=== PATIENT | male | born 1955 | race Caucasian/White ===

== ENCOUNTER 2017-08-22 11:18 | Emergency (ER) | payer MEDICARE, MEDICAID ==
[~2017-08-22] VITALS: Ht 177.8 cm; Wt 93.7 kg
[~2017-08-22 11:18] MED LIST: CARV25TA PO; CLON-529 PO
[2017-08-22 11:36] LABS: BASOPHILS % (AUTO) 0.5 % (0-1); EOSINOPHILS # (AUTO) 0.4 X10'3 (0-0.9); EOSINOPHILS % (AUTO) 5.6 % (0-6); HEMATOCRIT 42.3 % (42.0-52.0); HEMOGLOBIN 14.1 g/dl (14.0-17.9); LYMPHOCYTES # (AUTO) 1.2 X10'3 (1.1-4.8); LYMPHOCYTES % (AUTO) 16.1 % (21-51); MEAN CORPUSCULAR HEMOGLOBIN 27.8 PG (27.0-31.0); MEAN CORPUSCULAR HGB CONC 33.4 % (33.0-36.5); MEAN CORPUSCULAR VOLUME 83.2 FL (78-98); MEAN PLATELET VOLUME 6.9 FL (7.4-10.4); MONOCYTES # (AUTO) 0.5 X10'3 (0-0.9); MONOCYTES % (AUTO) 6.1 % (2-12); NEUTROPHILS # (AUTO) 5.3 X10'3 (1.8-7.7); NEUTROPHILS % (AUTO) 71.7 % (42-75); PLATELET COUNT 204 X10'3 (140-440); RED BLOOD COUNT 5.09 X10'6 (4.70-6.10); RED CELL DISTRIBUTION WIDTH 13.7 % (11.5-14.5); WHITE BLOOD COUNT 7.4 X10'3 (4.5-11.0)
[2017-08-22] MEDS ORDERED: normal saline 1000ML IV soln IV ONE (11:40)
[2017-08-22 11:45] LABS: INR 1.1 INR; PROTHROMBIN TIME 11.2 SECONDS (9.0-12.0)
[2017-08-22 11:50] LABS: ALANINE AMINOTRANSFERASE 27 U/L (12-78); ALBUMIN 3.4 G/DL (3.4-5.0); ALBUMIN/GLOBULIN RATIO 0.9 (1.1-1.5); ALKALINE PHOSPHATASE 124 IU/L (46-116); ANION GAP 8 (8-16); ASPARTATE AMINO TRANSFERASE 16 U/L (10-37); BILIRUBIN,TOTAL 0.4 MG/DL (0.1-1.0); BLOOD UREA NITROGEN 20 MG/DL (7-18); BUN/CREATININE RATIO 15.6 (5.4-32.0); CALCIUM 8.9 MG/DL (8.5-10.1); CHLORIDE 104 MMOL/L (99-107); CREATININE 1.28 MG/DL (0.60-1.10); GLUCOSE 197 MG/DL (70-104); POTASSIUM 4.2 MMOL/L (3.5-5.1); SODIUM 138 MMOL/L (135-145); TOTAL CARBON DIOXIDE 26.1 MMOL/L (24-32); eGFR 57 ML/MIN
[2017-08-22] MEDS ORDERED: ciprofloxacin lact 400MG/200ML 200 ML IV STA (12:27)
[2017-08-22] MEDS ORDERED: CIPR-259 PO (12:33)
[2017-08-22] MEDS ORDERED: ONDA4TAB9 SL (12:33)
[2017-08-22] MEDS ORDERED: morphine 4 MG/ML inj SYRINge IV ONE (13:20)
[2017-08-22 13:32] LABS: CLARITY,URINE Clear (Clear); COLOR,URINE Yellow (Yellow); GLUCOSE, URINE Negative (Neg); KETONES,URINE Negative (Neg); LEUKOCYTE ESTERASE ,URINE Negative (Neg); NITRITES, URINE Negative (Neg); OCCULT BLOOD,URINE Negative (Neg); PROTEIN,URINE Negative (Neg); UA COLLECTION TYPE URINAL
[2017-08-22] MEDS ORDERED: cloNIDine 0.1 mg tablet PO ONE (14:55)
[2017-08-22 15:29] VITALS: BP 222/121
== END 2017-08-22 15:37 | disposition home or self-care (01) ==
LOC: ER 11:19
DX: K57.92 Diverticulitis of intestine, part unspecified, without perforation or abscess without bleeding (principal); I10 Essential (primary) hypertension; Z79.899 Other long term (current) drug therapy
CPT/HCPCS: 36415; 74150; 80053; 81003; 83605; 84145; 85025; 85610; 87040; 96365; 96366; 96375; 99285; J0744; J2270; J7030

== ENCOUNTER 2017-08-26 09:20 | Emergency (ER) | payer MEDICARE, MEDICAID ==
[~2017-08-26] VITALS: Ht 604 cm; Wt 93.0 kg
[~2017-08-26 09:20] MED LIST changes: +CIPR-259 PO; +ONDA4TAB9 SL
[2017-08-26 09:36] VITALS: BP 143/90
[2017-08-26 10:45] LABS: BASOPHILS # (AUTO) 0.1 X10'3 (0-0.2); BASOPHILS % (AUTO) 1.1 % (0-1); EOSINOPHILS # (AUTO) 0.4 X10'3 (0-0.9); EOSINOPHILS % (AUTO) 6.5 % (0-6); HEMOGLOBIN 14.4 g/dl (14.0-17.9); LYMPHOCYTES # (AUTO) 1.2 X10'3 (1.1-4.8); LYMPHOCYTES % (AUTO) 18.6 % (21-51); MEAN CORPUSCULAR HGB CONC 33.6 % (33.0-36.5); MEAN CORPUSCULAR VOLUME 83.5 FL (78-98); MONOCYTES # (AUTO) 0.4 X10'3 (0-0.9); MONOCYTES % (AUTO) 6.8 % (2-12); NEUTROPHILS # (AUTO) 4.3 X10'3 (1.8-7.7); PLATELET COUNT 209 X10'3 (140-440); RED BLOOD COUNT 5.15 X10'6 (4.70-6.10); RED CELL DISTRIBUTION WIDTH 13.5 % (11.5-14.5); WHITE BLOOD COUNT 6.5 X10'3 (4.5-11.0)
== END 2017-08-26 11:12 | disposition home or self-care (01) ==
LOC: ER 09:20
DX: R10.32 Left lower quadrant pain (principal); I10 Essential (primary) hypertension; Z79.899 Other long term (current) drug therapy
CPT/HCPCS: 36415; 85025; 99283

== ENCOUNTER 2017-10-14 07:42 | Emergency (ER) | payer MEDICARE, MEDICAID ==
[~2017-10-14] VITALS: Ht 604 cm; Wt 90.3 kg
[~2017-10-14 07:42] MED LIST changes: -CIPR-259 PO; -ONDA4TAB9 SL
[2017-10-14] MEDS ORDERED: pantoprazole 40 MG vial IV ONE (08:35)
[2017-10-14] MEDS ORDERED: normal saline 1000ML IV soln IVB ONE (08:35)
[2017-10-14 09:16] LABS: BASOPHILS # (AUTO) 0.1 X10'3 (0-0.2); BASOPHILS % (AUTO) 0.9 % (0-1); EOSINOPHILS # (AUTO) 0.3 X10'3 (0-0.9); EOSINOPHILS % (AUTO) 5.2 % (0-6); HEMATOCRIT 43.5 % (42.0-52.0); HEMOGLOBIN 14.2 g/dl (14.0-17.9); LYMPHOCYTES % (AUTO) 17.6 % (21-51); MEAN CORPUSCULAR HEMOGLOBIN 27.2 PG (27.0-31.0); MEAN CORPUSCULAR HGB CONC 32.6 % (33.0-36.5); MEAN CORPUSCULAR VOLUME 83.3 FL (78-98); MEAN PLATELET VOLUME 7.7 FL (7.4-10.4); MONOCYTES # (AUTO) 0.4 X10'3 (0-0.9); MONOCYTES % (AUTO) 6.4 % (2-12); NEUTROPHILS # (AUTO) 3.9 X10'3 (1.8-7.7); NEUTROPHILS % (AUTO) 69.9 % (42-75); PLATELET COUNT 196 X10'3 (140-440); RED BLOOD COUNT 5.22 X10'6 (4.70-6.10); RED CELL DISTRIBUTION WIDTH 14.1 % (11.5-14.5); WHITE BLOOD COUNT 5.7 X10'3 (4.5-11.0)
[2017-10-14 09:25] LABS: PROTHROMBIN TIME 10.7 SECONDS (9.0-12.0)
[2017-10-14 10:04] LABS: ALANINE AMINOTRANSFERASE 16 U/L (12-78); ALBUMIN 3.4 G/DL (3.4-5.0); ALBUMIN/GLOBULIN RATIO 1.1 (1.1-1.5); ALKALINE PHOSPHATASE 95 IU/L (46-116); ANION GAP 8 (8-16); ASPARTATE AMINO TRANSFERASE 7 U/L (10-37); BILIRUBIN,TOTAL 0.7 MG/DL (0.1-1.0); BLOOD UREA NITROGEN 18 MG/DL (7-18); BUN/CREATININE RATIO 16.1 (5.4-32.0); CALCIUM 8.5 MG/DL (8.5-10.1); CHLORIDE 107 MMOL/L (99-107); CREATININE 1.12 MG/DL (0.60-1.10); GLUCOSE 150 MG/DL (70-104); POTASSIUM 3.9 MMOL/L (3.5-5.1); SODIUM 141 MMOL/L (135-145); TOTAL CARBON DIOXIDE 25.7 MMOL/L (24-32); TOTAL PROTEIN 6.6 G/DL (6.4-8.2); eGFR 67 ML/MIN
[2017-10-14] MEDS ORDERED: acetaminophen 325mg tablet PO ONE (10:35)
[2017-10-14 11:13] VITALS: BP 191/81
== END 2017-10-14 11:44 | disposition home or self-care (01) ==
LOC: ER 07:43
DX: K92.2 Gastrointestinal hemorrhage, unspecified (principal); C18.7 Malignant neoplasm of sigmoid colon; R10.32 Left lower quadrant pain; I10 Essential (primary) hypertension; F17.200 Nicotine dependence, unspecified, uncomplicated; Z90.89 Acquired absence of other organs
CPT/HCPCS: 36415; 71045; 80053; 82378; 85025; 85610; 86885; 86900; 86901; 93005; 96361; 96374; 99285; C9113; J7030

== ENCOUNTER 2017-11-07 17:00 | Inpatient (IN) | payer MEDICARE, MEDICAID ==
[~2017-11-07] VITALS: Ht 177.8 cm; Wt 92.0 kg
[2017-11-07 19:18] LABS: BASOPHILS % (AUTO) 0.5 % (0-1); EOSINOPHILS # (AUTO) 0.6 X10'3 (0-0.9); EOSINOPHILS % (AUTO) 9.1 % (0-6); HEMATOCRIT 32.8 % (42.0-52.0); HEMOGLOBIN 11.1 g/dl (14.0-17.9); LYMPHOCYTES # (AUTO) 1.1 X10'3 (1.1-4.8); LYMPHOCYTES % (AUTO) 15.8 % (21-51); MEAN CORPUSCULAR HEMOGLOBIN 27.7 PG (27.0-31.0); MEAN CORPUSCULAR VOLUME 81.4 FL (78-98); MEAN PLATELET VOLUME 5.9 FL (7.4-10.4); MONOCYTES # (AUTO) 0.6 X10'3 (0-0.9); MONOCYTES % (AUTO) 8.9 % (2-12); NEUTROPHILS # (AUTO) 4.4 X10'3 (1.8-7.7); NEUTROPHILS % (AUTO) 65.7 % (42-75); PLATELET COUNT 387 X10'3 (140-440); RED BLOOD COUNT 4.03 X10'6 (4.70-6.10); RED CELL DISTRIBUTION WIDTH 14.6 % (11.5-14.5); WHITE BLOOD COUNT 6.8 X10'3 (4.5-11.0)
[2017-11-07 19:31] LABS: INR 1.1 INR; PROTHROMBIN TIME 11.4 SECONDS (9.0-12.0)
[2017-11-07 19:37] LABS: ALANINE AMINOTRANSFERASE 22 U/L (12-78); ALBUMIN/GLOBULIN RATIO 0.7 (1.1-1.5); ALKALINE PHOSPHATASE 122 IU/L (46-116); ANION GAP 8 (8-16); ASPARTATE AMINO TRANSFERASE 13 U/L (10-37); BILIRUBIN,TOTAL 0.5 MG/DL (0.1-1.0); BLOOD UREA NITROGEN 18 MG/DL (7-18); BUN/CREATININE RATIO 16.2 (5.4-32.0); CALCIUM 8.9 MG/DL (8.5-10.1); CHLORIDE 101 MMOL/L (99-107); CREATININE 1.11 MG/DL (0.60-1.10); GLUCOSE 145 MG/DL (70-104); POTASSIUM 3.9 MMOL/L (3.5-5.1); SODIUM 138 MMOL/L (135-145); TOTAL CARBON DIOXIDE 29.3 MMOL/L (24-32); TOTAL PROTEIN 7.4 G/DL (6.4-8.2); eGFR 67 ML/MIN
[2017-11-07] MEDS ORDERED: normal saline 1000ML IV soln IVB ONE (19:55)
[2017-11-07 20:42] LABS: CLARITY,URINE CLEAR (Clear); COLOR,URINE YELLOW (Yellow); GLUCOSE, URINE NEGATIVE (Neg); KETONES,URINE NEGATIVE (Neg); LEUKOCYTE ESTERASE ,URINE NEGATIVE (Neg); NITRITES, URINE NEGATIVE (Neg); OCCULT BLOOD,URINE NEGATIVE (Neg); PROTEIN,URINE NEGATIVE (Neg); UROBILINOGEN,URINE 0.2 E.U/dL (0.2-1.0)
[2017-11-07 20:48] LABS: UA COLLECTION TYPE VOIDED
[2017-11-07] MEDS ORDERED: temazepam 15mg capsule PO PRN (21:00)
[2017-11-07] MEDS ORDERED: enalaprilat dihydrate 2.5mg/2ml vial IV ONE (21:45)
[2017-11-07] MEDS ORDERED: magnesium hydroxide 30ml (MOM) UD suspension PO PRN (21:50)
[2017-11-07] MEDS ORDERED: HYDROmorphone 1 mg/ml syringe IV PRN ×2 (21:50)
[2017-11-07] MEDS ORDERED: morphine 2 MG/ML inj. syringe IV PRN (21:50)
[2017-11-07] MEDS ORDERED: diphenhydrAMINE 50 mg/ml inj IV PRN (21:50)
[2017-11-07] MEDS ORDERED: metoclopramide 5 mg/ml inj IV PRN (21:50)
[2017-11-07] MEDS ORDERED: HYDROcodone/acetaminophen 10/325mg tab PO PRN (21:50)
[2017-11-07] MEDS ORDERED: acetaminophen 650mg rectal suppository RC PRN (21:50)
[2017-11-07] MEDS ORDERED: HYDROcodone/acetaminophen 5mg/325mg tablet PO PRN (21:50)
[2017-11-07] MEDS ORDERED: acetaminophen 325mg tablet PO PRN ×2 (21:50)
[2017-11-07] MEDS ORDERED: mag hydrox/Alum hydrox/simeth 30ml oral suspension PO PRN (21:50)
[2017-11-07] MEDS ORDERED: diphenhydrAMINE 25mg capsule PO PRN (21:50)
[2017-11-07] MEDS ORDERED: bisacodyl 10mg suppository rectal RC PRN (21:50)
[2017-11-07 22:11] LABS: HEMOGLOBIN A1C 7.5 % (4.5-6.2)
[2017-11-07 22:18] LABS: PARTIAL THROMBOPLASTIN TIME 31 SECONDS (22-32)
[2017-11-07 22:28] LABS: LIPASE 121 U/L (73-393); MAGNESIUM 1.7 MG/DL (1.5-2.4); PHOSPHORUS 4.1 MG/DL (2.3-4.5)
[2017-11-07 22:36] LABS: URINE AMPHETAMINE SCREEN NEGATIVE (Neg); URINE BARBITUATE SCREEN NEGATIVE (Neg); URINE BENZODIAZEPINES SCREEN NEGATIVE (Neg); URINE CANNABINOID SCREEN POSITIVE (Neg); URINE COCAINE SCREEN NEGATIVE (Neg); URINE METHADONE SCREEN NEGATIVE (Neg); URINE OPIATE SCREEN NEGATIVE (Neg); URINE PHENCYCLIDINE SCREEN NEGATIVE (Neg)
[2017-11-07] MEDS: ondansetron/PF 4mg/2ml inj IV PRN (23:09)
[2017-11-07] MEDS: morphine 2 MG/ML inj. syringe IV PRN (23:10)
[2017-11-07] MEDS: normal saline 1000ml 1,000 ML IV SCH (23:10)
[2017-11-07] MEDS: hydrALAZINE 20mg/ml inj. IV PRN (23:10)
[2017-11-07] MEDS: nicotine 21mg patch - 24 hr TD SCH (23:18)
[2017-11-08] VITALS (21 sets, daily range): BP systolic 106–168; BP diastolic 63–107
[2017-11-08] MEDS ORDERED: nitroGLYCERIN-Tridil 50MG/D5W 250 ML IV SCH (00:25)
[2017-11-08 01:16] LABS: HEMATOCRIT 31.2 % (42.0-52.0); HEMOGLOBIN 10.5 g/dl (14.0-17.9)
[2017-11-08 01:17] LABS: MEAN CORPUSCULAR HEMOGLOBIN 27.7 PG (27.0-31.0); MEAN CORPUSCULAR HGB CONC 33.7 % (33.0-36.5); MEAN CORPUSCULAR VOLUME 82.2 FL (78-98); MEAN PLATELET VOLUME 6.2 FL (7.4-10.4); PLATELET COUNT 329 X10'3 (140-440)
[2017-11-08 01:19] LABS: EOSINOPHILS % (AUTO) 10.3 % (0-6); LYMPHOCYTES % (AUTO) 20.7 % (21-51); MONOCYTES % (AUTO) 9.9 % (2-12); NEUTROPHILS % (AUTO) 58.1 % (42-75)
[2017-11-08 01:20] LABS: BASOPHILS # (AUTO) 0.1 X10'3 (0-0.2); EOSINOPHILS # (AUTO) 0.6 X10'3 (0-0.9); LYMPHOCYTES # (AUTO) 1.2 X10'3 (1.1-4.8); MONOCYTES # (AUTO) 0.6 X10'3 (0-0.9); NEUTROPHILS # (AUTO) 3.5 X10'3 (1.8-7.7); RED CELL DISTRIBUTION WIDTH 13.4 % (11.5-14.5)
[2017-11-08] MEDS: nicotine 21mg patch - 24 hr TD SCH (08:00)
[2017-11-08] MEDS ORDERED: non-formulary drug (Carvedilol (Coreg) 1 TAB) PO SCH (08:00)
[2017-11-08] MEDS: docusate sod 100mg capsule PO SCH ×2 (08:49→19:51)
[2017-11-08] MEDS: cloNIDine 0.1 mg tablet PO SCH ×3 (08:49→21:02)
[2017-11-08] MEDS: carVEDilol 12.5mg tablet PO SCH ×2 (08:49→19:51)
[2017-11-08] MEDS: pantoprazole 40 MG vial IV SCH ×2 (08:50→19:50)
[2017-11-08 09:02] LABS: BASOPHILS % (AUTO) 0.4 % (0-1); EOSINOPHILS # (AUTO) 0.6 X10'3 (0-0.9); EOSINOPHILS % (AUTO) 10.1 % (0-6); HEMATOCRIT 33.5 % (42.0-52.0); HEMOGLOBIN 11.3 g/dl (14.0-17.9); LYMPHOCYTES # (AUTO) 1.1 X10'3 (1.1-4.8); LYMPHOCYTES % (AUTO) 18.2 % (21-51); MEAN CORPUSCULAR HEMOGLOBIN 27.6 PG (27.0-31.0); MEAN CORPUSCULAR HGB CONC 33.8 % (33.0-36.5); MEAN CORPUSCULAR VOLUME 81.8 FL (78-98); MEAN PLATELET VOLUME 5.9 FL (7.4-10.4); MONOCYTES # (AUTO) 0.5 X10'3 (0-0.9); MONOCYTES % (AUTO) 8.3 % (2-12); NEUTROPHILS # (AUTO) 3.7 X10'3 (1.8-7.7); PLATELET COUNT 362 X10'3 (140-440); RED BLOOD COUNT 4.09 X10'6 (4.70-6.10); RED CELL DISTRIBUTION WIDTH 14.7 % (11.5-14.5); WHITE BLOOD COUNT 5.9 X10'3 (4.5-11.0)
[2017-11-08 09:20] LABS: ALANINE AMINOTRANSFERASE 15 U/L (12-78); ALBUMIN 2.9 G/DL (3.4-5.0); ALBUMIN/GLOBULIN RATIO 0.7 (1.1-1.5); ALKALINE PHOSPHATASE 129 IU/L (46-116); ANION GAP 8 (8-16); ASPARTATE AMINO TRANSFERASE 13 U/L (10-37); BILIRUBIN,TOTAL 0.8 MG/DL (0.1-1.0); BLOOD UREA NITROGEN 14 MG/DL (7-18); BUN/CREATININE RATIO 12.7 (5.4-32.0); CALCIUM 8.7 MG/DL (8.5-10.1); CHLORIDE 103 MMOL/L (99-107); GLUCOSE 162 MG/DL (70-104); POTASSIUM 4.1 MMOL/L (3.5-5.1); SODIUM 139 MMOL/L (135-145); TOTAL CARBON DIOXIDE 27.9 MMOL/L (24-32); TOTAL PROTEIN 7.2 G/DL (6.4-8.2); eGFR 68 ML/MIN
[2017-11-08] MEDS ORDERED: LIDOcaine 1%/PF 5ML 10 MG/ML VIAL SQ ONE (13:55)
[2017-11-08] MEDS ORDERED: midazolam 2 mg/2 ml injection IV PRN (13:55)
[2017-11-08] MEDS ORDERED: fentaNYL/PF 50MCG/1 ML 2ML syringe IV PRN (13:55)
[2017-11-08] MEDS ORDERED: midazolam 2 mg/2 ml injection ONE (14:03)
[2017-11-08] MEDS ORDERED: fentaNYL/PF 50MCG/1 ML 2ML syringe ONE (14:03)
[2017-11-08] MEDS ORDERED: LIDOcaine 1%/PF 5ML 10 MG/ML VIAL ONE (14:05)
[2017-11-08] MEDS: hydrALAZINE 20mg/ml inj. IV PRN (17:22)
[2017-11-08] MEDS ORDERED: PEG 3350/Na sulf,bicarb,Cl/KCl oral sol 4 liter bottle PO ONE (18:30)
[2017-11-08] MEDS: morphine 2 MG/ML inj. syringe IV PRN (19:51)
[2017-11-08] MEDS: ondansetron/PF 4mg/2ml inj IV PRN (20:56)
[2017-11-09] VITALS (11 sets, daily range): BP systolic 141–187; BP diastolic 66–87
[2017-11-09] MEDS: cloNIDine 0.1 mg tablet PO SCH ×3 (07:15→20:40)
[2017-11-09] MEDS: carVEDilol 12.5mg tablet PO SCH ×2 (07:15→20:40)
[2017-11-09] MEDS: pantoprazole 40 MG vial IV SCH ×2 (07:15→20:40)
[2017-11-09] MEDS: nicotine 21mg patch - 24 hr TD SCH (07:21)
[2017-11-09] MEDS: docusate sod 100mg capsule PO SCH ×2 (07:21→20:40)
[2017-11-09 07:28] LABS: BASOPHILS # (AUTO) 0.1 X10'3 (0-0.2); BASOPHILS % (AUTO) 2.2 % (0-1); EOSINOPHILS # (AUTO) 0.7 X10'3 (0-0.9); EOSINOPHILS % (AUTO) 13.1 % (0-6); HEMATOCRIT 32.2 % (42.0-52.0); HEMOGLOBIN 11.1 g/dl (14.0-17.9); LYMPHOCYTES # (AUTO) 1.1 X10'3 (1.1-4.8); LYMPHOCYTES % (AUTO) 20.4 % (21-51); MEAN CORPUSCULAR HEMOGLOBIN 27.9 PG (27.0-31.0); MEAN CORPUSCULAR HGB CONC 34.5 % (33.0-36.5); MEAN CORPUSCULAR VOLUME 80.9 FL (78-98); MEAN PLATELET VOLUME 6.2 FL (7.4-10.4); MONOCYTES # (AUTO) 0.5 X10'3 (0-0.9); NEUTROPHILS # (AUTO) 2.9 X10'3 (1.8-7.7); NEUTROPHILS % (AUTO) 54.3 % (42-75); PLATELET COUNT 370 X10'3 (140-440); RED BLOOD COUNT 3.97 X10'6 (4.70-6.10); RED CELL DISTRIBUTION WIDTH 14.3 % (11.5-14.5); WHITE BLOOD COUNT 5.3 X10'3 (4.5-11.0)
[2017-11-09 08:07] LABS: ALANINE AMINOTRANSFERASE 19 U/L (12-78); ALBUMIN 3.1 G/DL (3.4-5.0); ALBUMIN/GLOBULIN RATIO 0.7 (1.1-1.5); ALKALINE PHOSPHATASE 123 IU/L (46-116); ANION GAP 9 (8-16); ASPARTATE AMINO TRANSFERASE 9 U/L (10-37); BILIRUBIN,TOTAL 0.7 MG/DL (0.1-1.0); BLOOD UREA NITROGEN 15 MG/DL (7-18); CALCIUM 8.7 MG/DL (8.5-10.1); CHLORIDE 102 MMOL/L (99-107); CREATININE 1.15 MG/DL (0.60-1.10); GLUCOSE 185 MG/DL (70-104); POTASSIUM 3.7 MMOL/L (3.5-5.1); SODIUM 139 MMOL/L (135-145); TOTAL CARBON DIOXIDE 27.7 MMOL/L (24-32); TOTAL PROTEIN 7.3 G/DL (6.4-8.2); eGFR 65 ML/MIN
[2017-11-09] MEDS ORDERED: fentaNYL/PF 50MCG/1 ML 2ML syringe ONE (08:45)
[2017-11-09] MEDS ORDERED: MIDAZolam 5mg/5ml vial ONE (08:45)
[2017-11-09] MEDS ORDERED: polyethylene glycol 3350 17gm powd pack PO SCH (21:00)
[2017-11-09] MEDS: normal saline 1000ml 1,000 ML IV SCH (21:46)
[2017-11-10 03:00] VITALS: BP 172/90
[2017-11-10] MEDS: hydrALAZINE 20mg/ml inj. IV PRN (03:26)
[2017-11-10 06:00] VITALS: BP 164/85
[2017-11-10 07:00] LABS: BASOPHILS % (AUTO) 0.8 % (0-1); EOSINOPHILS # (AUTO) 0.8 X10'3 (0-0.9); EOSINOPHILS % (AUTO) 14.3 % (0-6); HEMATOCRIT 32.2 % (42.0-52.0); HEMOGLOBIN 10.9 g/dl (14.0-17.9); LYMPHOCYTES # (AUTO) 1.3 X10'3 (1.1-4.8); LYMPHOCYTES % (AUTO) 22.9 % (21-51); MEAN CORPUSCULAR HEMOGLOBIN 27.8 PG (27.0-31.0); MEAN CORPUSCULAR VOLUME 81.6 FL (78-98); MEAN PLATELET VOLUME 6.3 FL (7.4-10.4); MONOCYTES # (AUTO) 0.6 X10'3 (0-0.9); MONOCYTES % (AUTO) 9.7 % (2-12); NEUTROPHILS % (AUTO) 52.3 % (42-75); PLATELET COUNT 320 X10'3 (140-440); RED BLOOD COUNT 3.94 X10'6 (4.70-6.10); RED CELL DISTRIBUTION WIDTH 14.4 % (11.5-14.5); WHITE BLOOD COUNT 5.7 X10'3 (4.5-11.0)
[2017-11-10 07:15] LABS: ALANINE AMINOTRANSFERASE 16 U/L (12-78); ALBUMIN 2.8 G/DL (3.4-5.0); ALBUMIN/GLOBULIN RATIO 0.7 (1.1-1.5); ALKALINE PHOSPHATASE 122 IU/L (46-116); ANION GAP 9 (8-16); ASPARTATE AMINO TRANSFERASE 12 U/L (10-37); BILIRUBIN,TOTAL 0.5 MG/DL (0.1-1.0); BLOOD UREA NITROGEN 10 MG/DL (7-18); BUN/CREATININE RATIO 9.7 (5.4-32.0); CALCIUM 8.6 MG/DL (8.5-10.1); CHLORIDE 103 MMOL/L (99-107); CREATININE 1.03 MG/DL (0.60-1.10); GLUCOSE 162 MG/DL (70-104); POTASSIUM 3.8 MMOL/L (3.5-5.1); SODIUM 138 MMOL/L (135-145); TOTAL CARBON DIOXIDE 26.1 MMOL/L (24-32); TOTAL PROTEIN 6.7 G/DL (6.4-8.2); eGFR 73 ML/MIN
[2017-11-10] MEDS: cloNIDine 0.1 mg tablet PO SCH (07:29)
[2017-11-10] MEDS: docusate sod 100mg capsule PO SCH (07:29)
[2017-11-10] MEDS: carVEDilol 12.5mg tablet PO SCH (07:29)
[2017-11-10] MEDS: pantoprazole 40 MG vial IV SCH (07:29)
[2017-11-10] MEDS: nicotine 21mg patch - 24 hr TD SCH (07:30)
[2017-11-10] MEDS ORDERED: PANT-47 PO (08:48)
== END 2017-11-10 09:26 | disposition home or self-care (01) | DRG 357 ==
LOC: ER 17:01 → ED HOLD 21:46 → PCU 3S 11-08 10:42
PROVIDERS: ADMIT Family Medicine; ATTEND Internal Medicine
PROC: BW211ZZ Computerized Tomography (CT Scan) of Abdomen and Pelvis using Low Osmolar Contrast (ICD-10-PCS; principal; 2017-11-07)
PROC: 0W9J3ZX Drainage of Pelvic Cavity, Percutaneous Approach, Diagnostic (ICD-10-PCS; 2017-11-08)
PROC: 0DBL8ZX Excision of Transverse Colon, Via Natural or Artificial Opening Endoscopic, Diagnostic (ICD-10-PCS; 2017-11-09)
PROC: 0DBN8ZX Excision of Sigmoid Colon, Via Natural or Artificial Opening Endoscopic, Diagnostic (ICD-10-PCS; 2017-11-09)
DX: K92.1 Melena (principal); I16.1 Hypertensive emergency; K63.3 Ulcer of intestine; D12.3 Benign neoplasm of transverse colon; D50.0 Iron deficiency anemia secondary to blood loss (chronic); F12.10 Cannabis abuse, uncomplicated; K91.870 Postprocedural hematoma of a digestive system organ or structure following a digestive system procedure; Y83.8 Other surgical procedures as the cause of abnormal reaction of the patient, or of later complication, without mention of misadventure at the time of the procedure; Y73.3 Surgical instruments, materials and gastroenterology and urology devices (including sutures) associated with adverse incidents; K57.90 Diverticulosis of intestine, part unspecified, without perforation or abscess without bleeding; I10 Essential (primary) hypertension; Z90.49 Acquired absence of other specified parts of digestive tract; Z79.899 Other long term (current) drug therapy; Z85.038 Personal history of other malignant neoplasm of large intestine; Z87.891 Personal history of nicotine dependence; Y92.89 Other specified places as the place of occurrence of the external cause
CPT/HCPCS: 36415; 45380; 45385; 49406; 74176; 80053; 80305; 81003; 83036; 83690; 83735; 83880; 84100; 84443; 84484; 85025; 85610; 85730; 86885; 86900; 86901; 87070; 87077; 87185; 88305; 96360; 99152; 99153; 99285; A4620; A6250; C1894; C9113; G0500; J0360; J2001; J2250; J2270; J2405; J3010; J3490; J7030

== ENCOUNTER 2020-01-29 08:16 | Emergency (ER) | payer MEDICARE, MEDICAID ==
[~2020-01-29] VITALS: Ht 177.8 cm; Wt 98.6 kg
[~2020-01-29 08:16] MED LIST changes: +PANT-47 PO
[2020-01-29 09:40] LABS: BASOPHILS # (AUTO) 0.1 X10'3 (0-0.2); EOSINOPHILS % (AUTO) 0.6 % (0-6); HEMATOCRIT 46.1 % (42.0-52.0); HEMOGLOBIN 15.8 g/dl (14.0-17.9); LYMPHOCYTES # (AUTO) 0.4 X10'3 (1.1-4.8); LYMPHOCYTES % (AUTO) 4.5 % (21-51); MEAN CORPUSCULAR HEMOGLOBIN 31.4 PG (27.0-31.0); MEAN CORPUSCULAR HGB CONC 34.4 g/dL (33.0-36.5); MEAN CORPUSCULAR VOLUME 91.3 FL (78-98); MEAN PLATELET VOLUME 7.6 FL (7.4-10.4); MONOCYTES % (AUTO) 0.6 % (2-12); NEUTROPHILS # (AUTO) 7.2 X10'3 (1.8-7.7); NEUTROPHILS % (AUTO) 93.3 % (42-75); PLATELET COUNT 172 X10'3 (140-440); RED BLOOD COUNT 5.05 X10'6 (4.70-6.10); RED CELL DISTRIBUTION WIDTH 13.3 % (11.5-14.5); WHITE BLOOD COUNT 7.8 X10'3 (4.5-11.0)
[2020-01-29 09:55] LABS: PARTIAL THROMBOPLASTIN TIME 26 SECONDS (22-32)
[2020-01-29 09:59] LABS: ALANINE AMINOTRANSFERASE 29 U/L (12-78); ALBUMIN 4.3 G/DL (3.4-5.0); ALBUMIN/GLOBULIN RATIO 1.1 (1.1-1.5); ALKALINE PHOSPHATASE 118 IU/L (46-116); ANION GAP 7 (8-16); ASPARTATE AMINO TRANSFERASE 17 U/L (10-37); BILIRUBIN,TOTAL 2.1 MG/DL (0.1-1.0); BLOOD UREA NITROGEN 22 MG/DL (7-18); BUN/CREATININE RATIO 11.5 (5.4-32.0); CHLORIDE 98 MMOL/L (99-107); CREATININE 1.92 MG/DL (0.60-1.10); GLUCOSE 253 MG/DL (70-104); POTASSIUM 4.1 MMOL/L (3.5-5.1); SODIUM 133 MMOL/L (135-145); TOTAL CARBON DIOXIDE 28.2 MMOL/L (24-32); TOTAL PROTEIN 8.1 G/DL (6.4-8.2); eGFR 35 ML/MIN
[2020-01-29 10:06] LABS: MAGNESIUM 1.4 MG/DL (1.5-2.4)
[2020-01-29 10:07] LABS: PLATELET ESTIMATE NORMAL; TOTAL CELLS COUNTED 100
[2020-01-29] MEDS ORDERED: CefTRIAXone 1000mg IM Kit (w/lidocaine diluent) IM ONE (10:15)
[2020-01-29] MEDS ORDERED: azithromycin 250mg tablet PO ONE (10:15)
[2020-01-29] MEDS ORDERED: LEVO750T46 PO (10:48)
[2020-01-29 11:03] VITALS: BP 141/83
== END 2020-01-29 11:04 | disposition home or self-care (01) ==
LOC: ER 08:17
DX: N17.9 Acute kidney failure, unspecified (principal); J18.9 Pneumonia, unspecified organism; R06.02 Shortness of breath; R05 Cough; R07.89 Other chest pain; Z20.828 Contact with and (suspected) exposure to other viral communicable diseases; M54.2 Cervicalgia; M25.511 Pain in right shoulder; I10 Essential (primary) hypertension; F17.200 Nicotine dependence, unspecified, uncomplicated; Z86.69 Personal history of other diseases of the nervous system and sense organs; Z85.038 Personal history of other malignant neoplasm of large intestine; Z98.890 Other specified postprocedural states; Z79.899 Other long term (current) drug therapy
CPT/HCPCS: 36415; 71045; 80053; 83735; 83880; 84145; 84484; 85007; 85025; 85610; 85730; 87635; 93005; 96372; 99285; J0696

== ENCOUNTER 2020-08-29 07:20 | Emergency (ER) | payer MEDICARE, MEDICAID ==
[~2020-08-29] VITALS: Ht 177.8 cm; Wt 95.4 kg
[2020-08-29 07:27] VITALS: BP 181/92
[2020-08-29] MEDS ORDERED: METH-798 PO (10:30)
[2020-08-29] MEDS ORDERED: orphenadrine citrate 60mg/2ml inj. IM ONE (10:30)
[2020-08-29] MEDS ORDERED: ketorolac tromethamine 15mg/ml inj. IM ONE (10:30)
[2020-08-29] MEDS ORDERED: NAPR-56 PO (10:30)
--- NOTE | 2020-08-29 11:07 | NUR ---
PT WAS SEEN AND TREATED BY KISHA MOSQUEDA. IM INJECTIONS GIVEN BY MYSELF. PT TOLERATED WELL. DISCHARGED HOME IN STABLE CONDITION.
== END 2020-08-29 11:10 | disposition home or self-care (01) ==
LOC: ER 07:21
DX: M54.41 Lumbago with sciatica, right side (principal); M25.551 Pain in right hip; I10 Essential (primary) hypertension; Z86.69 Personal history of other diseases of the nervous system and sense organs; Z85.038 Personal history of other malignant neoplasm of large intestine; Z98.890 Other specified postprocedural states; Z79.899 Other long term (current) drug therapy
CPT/HCPCS: 73502; 96372; 99284; J1885; J2360

== ENCOUNTER 2021-03-13 17:10 | Emergency (ER) | payer MEDICARE, MEDICAID ==
[~2021-03-13] VITALS: Ht 177.8 cm; Wt 94.6 kg
[~2021-03-13 17:10] MED LIST changes: +METH-798 PO
[2021-03-13 17:15] VITALS: BP 200/106
[2021-03-13] MEDS ORDERED: TETanus/Pertussis (Acell)/Diphther VAC/PF (Tdap-Adult) 0.5ml syringe IMVAC ONE (20:40)
[2021-03-13] MEDS ORDERED: LIDOcaine 1% 30ml preserv. free vial IJ ONE (20:40)
== END 2021-03-13 21:58 | disposition home or self-care (01) ==
LOC: ER 17:10
DX: S61.011A Laceration without foreign body of right thumb without damage to nail, initial encounter (principal); G40.909 Epilepsy, unspecified, not intractable, without status epilepticus; I10 Essential (primary) hypertension; Z87.19 Personal history of other diseases of the digestive system; Z85.038 Personal history of other malignant neoplasm of large intestine; Z79.899 Other long term (current) drug therapy; W26.8XXA Contact with other sharp object(s), not elsewhere classified, initial encounter; Y93.89 Activity, other specified; Y92.89 Other specified places as the place of occurrence of the external cause; Y99.8 Other external cause status
CPT/HCPCS: 12001; 73130; 90471; 90715; 99283

== ENCOUNTER 2021-04-14 07:10 | Emergency (ER) | payer MEDICARE, MEDICAID ==
[~2021-04-14] VITALS: Ht 177.8 cm; Wt 95.5 kg
[2021-04-14 07:25] VITALS: BP 163/109
[2021-04-14] MEDS ORDERED: ALBUTEROL INHALER 1 PUFF/90 MCG INHALER IH PRN (07:35)
[2021-04-14] MEDS ORDERED: FLUT1DIS INH ×2 (08:02)
[2021-04-14] MEDS ORDERED: ipratropium/albuterol 3ml nebule NEB ONE (08:40)
== END 2021-04-14 09:33 | disposition home or self-care (01) ==
LOC: ER 07:10
DX: J40 Bronchitis, not specified as acute or chronic (principal); R06.02 Shortness of breath; R05.9 Cough, unspecified; I10 Essential (primary) hypertension; Z86.73 Personal history of transient ischemic attack (TIA), and cerebral infarction without residual deficits; Z86.69 Personal history of other diseases of the nervous system and sense organs; Z85.038 Personal history of other malignant neoplasm of large intestine; Z98.890 Other specified postprocedural states; Z79.899 Other long term (current) drug therapy
CPT/HCPCS: 94640; 94760; 99283

== ENCOUNTER 2021-04-17 15:49 | Emergency (ER) | payer MEDICARE, MEDICAID ==
[~2021-04-17] VITALS: Ht 177.8 cm; Wt 95.0 kg
[~2021-04-17 15:49] MED LIST changes: +FLUT1DIS INH
[2021-04-17 16:01] VITALS: BP 218/118
[2021-04-17] MEDS ORDERED: TERA1CAP4 PO (16:35)
[2021-04-17] MEDS ORDERED: METF-436 PO (16:35)
[2021-04-17] MEDS ORDERED: clonidine PO (16:35)
[2021-04-17] MEDS ORDERED: BUDE10.22 INH (16:35)
[2021-04-17] MEDS ORDERED: DULO-31 PO (16:35)
[2021-04-17 16:53] LABS: BASOPHILS % (AUTO) 0.3 % (0-1); EOSINOPHILS # (AUTO) 0.1 X10'3 (0-0.9); EOSINOPHILS % (AUTO) 2.1 % (0-6); HEMATOCRIT 42.4 % (42.0-52.0); HEMOGLOBIN 14.5 g/dl (14.0-17.9); LYMPHOCYTES # (AUTO) 1.3 X10'3 (1.1-4.8); LYMPHOCYTES % (AUTO) 24.5 % (21-51); MEAN CORPUSCULAR HEMOGLOBIN 30.6 PG (27.0-31.0); MEAN CORPUSCULAR HGB CONC 34.2 g/dL (33.0-36.5); MEAN CORPUSCULAR VOLUME 89.6 FL (78-98); MEAN PLATELET VOLUME 7.1 FL (7.4-10.4); MONOCYTES # (AUTO) 0.4 X10'3 (0-0.9); MONOCYTES % (AUTO) 7.9 % (2-12); NEUTROPHILS # (AUTO) 3.6 X10'3 (1.8-7.7); NEUTROPHILS % (AUTO) 65.2 % (42-75); PLATELET COUNT 207 X10'3 (140-440); RED BLOOD COUNT 4.73 X10'6 (4.70-6.10); RED CELL DISTRIBUTION WIDTH 12.8 % (11.5-14.5); WHITE BLOOD COUNT 5.5 X10'3 (4.5-11.0)
[2021-04-17 17:29] LABS: ALANINE AMINOTRANSFERASE 15 U/L (12-78); ALBUMIN 3.6 G/DL (3.4-5.0); ALKALINE PHOSPHATASE 101 IU/L (46-116); ANION GAP 11 (8-16); ASPARTATE AMINO TRANSFERASE 10 U/L (10-37); BILIRUBIN,TOTAL 0.8 MG/DL (0.1-1.0); BLOOD UREA NITROGEN 17 MG/DL (7-18); BUN/CREATININE RATIO 15.6 (5.4-32.0); CALCIUM 8.7 MG/DL (8.5-10.1); CHLORIDE 101 MMOL/L (99-107); CREATININE 1.09 MG/DL (0.60-1.10); GLUCOSE 116 MG/DL (70-104); POTASSIUM 4.1 MMOL/L (3.5-5.1); SODIUM 141 MMOL/L (135-145); TOTAL CARBON DIOXIDE 28.9 MMOL/L (24-32); TOTAL PROTEIN 7.1 G/DL (6.4-8.2); eGFR 68 ML/MIN
[2021-04-17] MEDS ORDERED: ALBU8HFA PO (18:03)
[2021-04-17] MEDS ORDERED: PRED20TA PO (18:03)
--- NOTE | 2021-04-17 18:13 | NUR ---
Pt given and understands d/c instructions. Ambulatory with a steady gait.
== END 2021-04-17 18:10 | disposition home or self-care (01) ==
LOC: ER 15:49
DX: U07.1 COVID-19 (principal); U09.9 Post COVID-19 condition, unspecified; R05.9 Cough, unspecified; I10 Essential (primary) hypertension; J44.9 Chronic obstructive pulmonary disease, unspecified; F17.200 Nicotine dependence, unspecified, uncomplicated; Z87.19 Personal history of other diseases of the digestive system; Z86.73 Personal history of transient ischemic attack (TIA), and cerebral infarction without residual deficits; Z98.890 Other specified postprocedural states; Z79.899 Other long term (current) drug therapy
CPT/HCPCS: 36415; 71045; 80053; 85025; 87635; 93005; 99285; C9803

== ENCOUNTER 2021-06-01 02:23 | Emergency (ER) | payer MEDICARE, MEDICAID ==
[~2021-06-01] VITALS: Ht 177.8 cm; Wt 90.9 kg
[~2021-06-01 02:23] MED LIST changes: +BUDE10.22 INH; -CLON-529 PO; +DULO-31 PO; -FLUT1DIS INH; +METF-436 PO; -METH-798 PO; +TERA1CAP4 PO; +clonidine PO
[2021-06-01] MEDS ORDERED: albuterol 2.5 MG/3 ML nebule NEB ONE (03:10)
[2021-06-01 03:13] LABS: BASOPHILS # (AUTO) 0.1 X10'3 (0-0.2); BASOPHILS % (AUTO) 0.7 % (0-1); EOSINOPHILS % (AUTO) 0.4 % (0-6); HEMATOCRIT 40.1 % (42.0-52.0); HEMOGLOBIN 13.5 g/dl (14.0-17.9); LYMPHOCYTES # (AUTO) 0.6 X10'3 (1.1-4.8); LYMPHOCYTES % (AUTO) 6.5 % (21-51); MEAN CORPUSCULAR HEMOGLOBIN 30.2 PG (27.0-31.0); MEAN CORPUSCULAR HGB CONC 33.7 g/dL (33.0-36.5); MEAN CORPUSCULAR VOLUME 89.5 FL (78-98); MEAN PLATELET VOLUME 7.3 FL (7.4-10.4); MONOCYTES # (AUTO) 0.2 X10'3 (0-0.9); MONOCYTES % (AUTO) 2.3 % (2-12); NEUTROPHILS # (AUTO) 7.8 X10'3 (1.8-7.7); NEUTROPHILS % (AUTO) 90.1 % (42-75); PLATELET COUNT 211 X10'3 (140-440); RED BLOOD COUNT 4.48 X10'6 (4.70-6.10); RED CELL DISTRIBUTION WIDTH 14.5 % (11.5-14.5); WHITE BLOOD COUNT 8.7 X10'3 (4.5-11.0)
[2021-06-01 03:29] LABS: ALANINE AMINOTRANSFERASE 50 U/L (12-78); ALBUMIN 3.9 G/DL (3.4-5.0); ALKALINE PHOSPHATASE 85 IU/L (46-116); ANION GAP 13 (8-16); ASPARTATE AMINO TRANSFERASE 45 U/L (10-37); BILIRUBIN,TOTAL 1.3 MG/DL (0.1-1.0); BLOOD UREA NITROGEN 24 MG/DL (7-18); BUN/CREATININE RATIO 18.9 (5.4-32.0); CALCIUM 8.5 MG/DL (8.5-10.1); CHLORIDE 100 MMOL/L (99-107); CREATININE 1.27 MG/DL (0.60-1.10); GLUCOSE 159 MG/DL (70-104); POTASSIUM 3.4 MMOL/L (3.5-5.1); SODIUM 136 MMOL/L (135-145); TOTAL CARBON DIOXIDE 23.4 MMOL/L (24-32); TOTAL PROTEIN 7.8 G/DL (6.4-8.2); eGFR 57 ML/MIN
[2021-06-01 03:40] LABS: D-DIMER 0.69 MG/L FEU (0-0.50)
[2021-06-01] MEDS ORDERED: iohexol 350MG/ML 100ml bottle IV ONE (05:13)
[2021-06-01] MEDS ORDERED: amox tr/potassium clavulanate 875/125mg TAB PO ONE (05:30)
[2021-06-01 06:10] VITALS: BP 165/87
[2021-06-01] MEDS ORDERED: AMOX-117 PO (06:43)
== END 2021-06-01 06:56 | disposition home or self-care (01) ==
LOC: ER 02:23
DX: J18.9 Pneumonia, unspecified organism (principal); R06.02 Shortness of breath; R07.89 Other chest pain; R05.9 Cough, unspecified; I10 Essential (primary) hypertension; J44.9 Chronic obstructive pulmonary disease, unspecified; E11.9 Type 2 diabetes mellitus without complications; Z86.73 Personal history of transient ischemic attack (TIA), and cerebral infarction without residual deficits; Z86.69 Personal history of other diseases of the nervous system and sense organs; Z85.038 Personal history of other malignant neoplasm of large intestine; Z98.890 Other specified postprocedural states; Z79.2 Long term (current) use of antibiotics; Z79.899 Other long term (current) drug therapy
CPT/HCPCS: 36415; 71045; 71275; 80053; 83880; 84484; 85025; 85379; 94640; 99285; Q9967; 94760

== ENCOUNTER 2021-06-01 12:54 | Emergency (ER) | payer MEDICARE, MEDICAID ==
[~2021-06-01] VITALS: Ht 177.8 cm; Wt 90.9 kg
[~2021-06-01 12:54] MED LIST changes: +AMOX-117 PO
[2021-06-01 13:02] VITALS: BP 167/78
[2021-06-01] MEDS ORDERED: ipratropium/albuterol 3ml nebule NEB ONE (15:40)
== END 2021-06-01 16:45 | disposition home or self-care (01) ==
LOC: ER 12:54
DX: J18.9 Pneumonia, unspecified organism (principal); R04.2 Hemoptysis; J45.909 Unspecified asthma, uncomplicated; I10 Essential (primary) hypertension; E11.9 Type 2 diabetes mellitus without complications; Z86.73 Personal history of transient ischemic attack (TIA), and cerebral infarction without residual deficits; Z86.69 Personal history of other diseases of the nervous system and sense organs; Z85.9 Personal history of malignant neoplasm, unspecified; Z98.890 Other specified postprocedural states; Z79.2 Long term (current) use of antibiotics; Z79.899 Other long term (current) drug therapy
CPT/HCPCS: 94640; 94760; 99283

== ENCOUNTER 2021-10-03 10:56 | Outpatient (CLI) | payer MEDICARE, MEDICAID ==
[~2021-10-03 10:56] MED LIST changes: -AMOX-117 PO; -BUDE10.22 INH; +HYDR100T27 PO; +IPRA3AMP9 NEB; -PANT-47 PO; +PANT40TA54 PO; +SPIR25TA5 PO
[2021-10-03 11:53] LABS: BASOPHILS # (AUTO) 0.1 X10'3 (0-0.2); EOSINOPHILS # (AUTO) 0.2 X10'3 (0-0.9); EOSINOPHILS % (AUTO) 3.3 % (0-6); HEMATOCRIT 39.6 % (42.0-52.0); HEMOGLOBIN 13.3 g/dl (14.0-17.9); MEAN CORPUSCULAR HEMOGLOBIN 30.8 PG (27.0-31.0); MEAN CORPUSCULAR HGB CONC 33.7 g/dL (33.0-36.5); MEAN CORPUSCULAR VOLUME 91.3 FL (78-98); MEAN PLATELET VOLUME 7.5 FL (7.4-10.4); MONOCYTES # (AUTO) 0.4 X10'3 (0-0.9); MONOCYTES % (AUTO) 7.1 % (2-12); NEUTROPHILS # (AUTO) 3.8 X10'3 (1.8-7.7); NEUTROPHILS % (AUTO) 70.6 % (42-75); PLATELET COUNT 177 X10'3 (140-440); RED BLOOD COUNT 4.34 X10'6 (4.70-6.10); RED CELL DISTRIBUTION WIDTH 13.9 % (11.5-14.5); WHITE BLOOD COUNT 5.4 X10'3 (4.5-11.0)
[2021-10-03 11:57] LABS: ALANINE AMINOTRANSFERASE 49 U/L (12-78); ALBUMIN 3.9 G/DL (3.4-5.0); ALBUMIN/GLOBULIN RATIO 1.1 (1.1-1.5); ALKALINE PHOSPHATASE 94 IU/L (46-116); ANION GAP 12 (8-16); ASPARTATE AMINO TRANSFERASE 23 U/L (10-37); BILIRUBIN,TOTAL 0.8 MG/DL (0.1-1.0); BLOOD UREA NITROGEN 22 MG/DL (7-18); BUN/CREATININE RATIO 17.7 (5.4-32.0); CALCIUM 8.7 MG/DL (8.5-10.1); CHLORIDE 104 MMOL/L (99-107); CHOL/HDL RATIO 6.8 (0.00-4.99); CHOLESTEROL 232 MG/DL (0-200); CREATININE 1.24 MG/DL (0.60-1.10); GLUCOSE 169 MG/DL (70-104); HDL CHOLESTEROL 34 MG/DL (35-60); LDL CHOLESTEROL 163 MG/DL (50-100); POTASSIUM 4.3 MMOL/L (3.5-5.1); SODIUM 141 MMOL/L (135-145); TOTAL CARBON DIOXIDE 25.1 MMOL/L (24-32); TOTAL PROTEIN 7.4 G/DL (6.4-8.2); TRIGLYCERIDES 105 MG/DL (20-135); eGFR 59 ML/MIN
[2021-10-03 12:08] LABS: HEMOGLOBIN A1C 6.9 % (4.5-6.2)
[2021-10-04 10:37] LABS: C-PEPTIDE, SERUM 3.2 ng/mL (1.1-4.4); PSA, FREE 0.57 ng/mL
[2021-10-05 19:11] LABS: LIPOPROTEIN A 25.8 nmol/L (<75.0)
== END 2021-10-03 23:59 | disposition home or self-care (01) ==
LOC: LAB 10:56
PROVIDERS: ATTEND Internal Medicine Cardiovascular Disease
DX: N42.9 Disorder of prostate, unspecified (principal); K76.9 Liver disease, unspecified; E78.5 Hyperlipidemia, unspecified; E11.9 Type 2 diabetes mellitus without complications; I25.118 Atherosclerotic heart disease of native coronary artery with other forms of angina pectoris; R53.83 Other fatigue
CPT/HCPCS: 36415; 80053; 80061; 83036; 83695; 84153; 84154; 84439; 84443; 84681; 85025

== ENCOUNTER 2021-10-05 05:27 | Day surgery (SDC) | payer MEDICARE, MEDICAID ==
--- NOTE | 2021-07-20 09:45 | NUR ---
PT SEEN IN THE PRE-OP CLINIC. STATES OVER THE LAST COUPLE OF MONTHS HE HAS EXPERIENCED EPISODES OF CHEST PAIN WITH TACHYCARDIA AND SOB, WITH NO CARDIAC WORKUP. HOWEVER HE IS SCHEDULE FOR A NEW PT VISIT WITH DR ARNOLD 08/02/21 TO EVALUATE THESE SYMPTOMS. CLEMENCIA AT DR JACKSON'S OFFICE MADE AWARE AND PER HER PT IS TO BE RESCHEDULED FOR SURGERY POST CARDIAC WORKUP. BENITA IN THE OR NOTIFIED. PT AND INSTRUCTED TO CALL CLEMENCIA FOR FURTHER INSTRUCTIONS REGARDING SURGERY SCHEDULING.
[2021-10-05] VITALS (11 sets, daily range): BP systolic 147–193; BP diastolic 74–99
[~2021-10-05] VITALS: Ht 177.8 cm; Wt 83.5 kg
[~2021-10-05 05:27] MED LIST changes: +albuterol 2.5 MG/3 ML nebule NEB PRN; +ringers solution, lacted 1,000 ML IV SCH
[2021-10-05] MEDS ORDERED: ceFAZolin inj. 2,000 MG in dextrose 5%-water 100 ML IV ONE (05:30)
[2021-10-05] MEDS ORDERED: DOCUMENT DATE & TIME OF BETA-BLOCKER PO ONE (05:30)
[2021-10-05] MEDS ORDERED: famotidine 20mg tablet PO ONE (05:30)
[2021-10-05] MEDS ORDERED: LIDOcaine 1% 30ml preserv. free vial ONE (06:40)
[2021-10-05] MEDS ORDERED: BUPIVAcaine/PF 2.5 mg/ml (0.25%) 30ml vial ONE ×2 (06:40→06:58)
[2021-10-05] MEDS ORDERED: BUPIVACAINE liposomal/PF 13.3 MG/ML vial IM ONE (06:58)
[2021-10-05] MEDS ORDERED: sevoflurane 250ml liquid IH ONE (07:23)
[2021-10-05] MEDS ORDERED: midazolam 1 mg/ML 2ml injection ONE (07:27)
[2021-10-05] MEDS ORDERED: fentaNYL/PF 50MCG/1 ML 2ML syringe ONE (07:27)
[2021-10-05] MEDS ORDERED: rocuronium 10mg/ml inj IV ONE (07:28)
[2021-10-05] MEDS ORDERED: propofol inj 20 ML IV ONE (07:28)
[2021-10-05] MEDS ORDERED: dexamethasone sod phosphate 4mg/ml inj. ONE (08:06)
[2021-10-05] MEDS ORDERED: ondansetron/PF 4mg/2ml inj ONE (09:04)
[2021-10-05] MEDS ORDERED: neostigmine methylsulfate 1 MG/ML 10ml vial ONE (09:04)
[2021-10-05] MEDS ORDERED: glycopyrrolate 0.2mg/ml inj ONE (09:04)
--- NOTE | 2021-10-05 09:15 | NUR ---
Received from OR via [facility], accompanied by Anesthesiologist and report given by PRACHI Anesthesiologist. PATIENT WAKING UP, DENIES PAIN, V/S WNL, SCD ON , PIV 20G RUE, BANDAIDS LAPS SITES CLOSED CDI TO ABDOMEN WITH ABDOMINAL BINDER. Addendum: 10/05/21 at 1005 by Nba Corona RN Amended: Links added.
[2021-10-05] MEDS ORDERED: oxyCODONE/APAP 5-325mg tablet PO PRN (09:20)
[2021-10-05] MEDS ORDERED: morphine 2 MG/ML inj. syringe IV PRN (09:30)
[2021-10-05] MEDS ORDERED: meperidine/PF 25mg/ml syringe IV PRN ×3 (09:30)
[2021-10-05] MEDS ORDERED: morphine 4 MG/ML inj SYRINge IV PRN (09:30)
[2021-10-05] MEDS ORDERED: ringers solution, lacted 1,000 ML IV SCH (09:30)
[2021-10-05] MEDS ORDERED: ondansetron/PF 4mg/2ml inj IV PRN (09:30)
[2021-10-05] MEDS ORDERED: proCHLORperazine 10 MG/2 ml inj IV PRN (09:30)
--- NOTE | 2021-10-05 10:25 | NUR ---
ALL DISCHARGE CRITERIA HAS BEEN MET. VSS, PAIN AT A TOLERABLE LEVEL, VOIDING AND ABLE TO SAFELY AMBULATE AND TRANSFER SELF. IV TAKEN OUT WITHOUT ANY COMPLICATIONS. ALL DISCHARGE INSTRUCTIONS COVERED WITH PATIENT AND ALL QUESTIONS ANSWERED. PATIENT TAKEN OUT VIA WHEELCHAIR WITH ALL BELONGINGS TO PERSONAL VEHICLE WHERE FAMILY DROVE PATIENT HOME. Addendum: 10/05/21 at 1040 by Nba Corona RN Amended: Links added.
== END 2021-10-05 10:25 | disposition home or self-care (01) ==
LOC: PAS 05:27
PROVIDERS: ATTEND Surgery
DX: K43.2 Incisional hernia without obstruction or gangrene (principal); F17.210 Nicotine dependence, cigarettes, uncomplicated; I69.351 Hemiplegia and hemiparesis following cerebral infarction affecting right dominant side; I10 Essential (primary) hypertension; E11.9 Type 2 diabetes mellitus without complications; K21.9 Gastro-esophageal reflux disease without esophagitis; M19.90 Unspecified osteoarthritis, unspecified site; Z79.899 Other long term (current) drug therapy; Z90.49 Acquired absence of other specified parts of digestive tract; Z98.890 Other specified postprocedural states; Z88.8 Allergy status to other drugs, medicaments and biological substances
CPT/HCPCS: 49654; 82948; 87811; C1758; C1781; C9290; J0690; J1100; J2175; J2250; J2405; J2704; J2710; J3010; J3490; J7030; J7060; J7120; Z7506; Z7508; Z7512; A4215; A4618

== ENCOUNTER 2021-10-11 17:23 | Emergency (ER) | payer MEDICARE, MEDICAID ==
[~2021-10-11] VITALS: Ht 177.8 cm; Wt 88.2 kg
[~2021-10-11 17:23] MED LIST changes: -albuterol 2.5 MG/3 ML nebule NEB PRN; -ringers solution, lacted 1,000 ML IV SCH
[2021-10-11] MEDS ORDERED: levetiracetam inj 1,000 MG in normal saline 100ml IV soln 90 ML IV STA (17:29)
[2021-10-11] MEDS ORDERED: magnesium 2GM in 50ml NS 50 ML IV ONE (17:30)
[2021-10-11] MEDS ORDERED: LORazepam 2 mg/ml vial IV ONE (17:30)
[2021-10-11] MEDS ORDERED: normal saline 1000ML IV soln IVB ONE (17:30)
[2021-10-11] MEDS ORDERED: levetiracetam inj 1,000 MG in normal saline 100ml IV soln 100 ML IV STA (17:40)
[2021-10-11 18:05] LABS: BASOPHILS % (AUTO) 0.8 % (0-1); EOSINOPHILS # (AUTO) 0.3 X10'3 (0-0.9); EOSINOPHILS % (AUTO) 5.5 % (0-6); HEMATOCRIT 37.3 % (42.0-52.0); HEMOGLOBIN 12.7 g/dl (14.0-17.9); LYMPHOCYTES # (AUTO) 1.3 X10'3 (1.1-4.8); LYMPHOCYTES % (AUTO) 24.5 % (21-51); MEAN CORPUSCULAR HEMOGLOBIN 30.6 PG (27.0-31.0); MEAN CORPUSCULAR VOLUME 90.3 FL (78-98); MEAN PLATELET VOLUME 7.3 FL (7.4-10.4); MONOCYTES # (AUTO) 0.5 X10'3 (0-0.9); MONOCYTES % (AUTO) 10.4 % (2-12); NEUTROPHILS # (AUTO) 3.1 X10'3 (1.8-7.7); NEUTROPHILS % (AUTO) 58.8 % (42-75); PLATELET COUNT 178 X10'3 (140-440); RED BLOOD COUNT 4.14 X10'6 (4.70-6.10); RED CELL DISTRIBUTION WIDTH 13.4 % (11.5-14.5); WHITE BLOOD COUNT 5.2 X10'3 (4.5-11.0)
[2021-10-11 18:13] LABS: ALANINE AMINOTRANSFERASE 50 U/L (12-78); ALBUMIN 3.7 G/DL (3.4-5.0); ALBUMIN/GLOBULIN RATIO 1.1 (1.1-1.5); ALKALINE PHOSPHATASE 97 IU/L (46-116); ANION GAP 9 (8-16); ASPARTATE AMINO TRANSFERASE 27 U/L (10-37); BLOOD UREA NITROGEN 30 MG/DL (7-18); BUN/CREATININE RATIO 19.1 (5.4-32.0); CALCIUM 8.5 MG/DL (8.5-10.1); CHLORIDE 100 MMOL/L (99-107); CREATINE KINASE 20 U/L (39-308); CREATININE 1.57 MG/DL (0.60-1.10); ETHANOL 0.021 GM/DL (0.0-0.010); GLUCOSE 154 MG/DL (70-104); SODIUM 134 MMOL/L (135-145); TOTAL CARBON DIOXIDE 24.7 MMOL/L (24-32); TOTAL PROTEIN 7.2 G/DL (6.4-8.2); eGFR 45 ML/MIN
[2021-10-11] MEDS ORDERED: KEP500T PO (18:51)
[2021-10-11 18:56] VITALS: BP 157/87
== END 2021-10-11 19:21 | disposition home or self-care (01) ==
LOC: ER 17:24
DX: G40.909 Epilepsy, unspecified, not intractable, without status epilepticus (principal); F10.129 Alcohol abuse with intoxication, unspecified; I10 Essential (primary) hypertension; J45.909 Unspecified asthma, uncomplicated; J44.9 Chronic obstructive pulmonary disease, unspecified; E11.9 Type 2 diabetes mellitus without complications; Z98.890 Other specified postprocedural states; Y90.9 Presence of alcohol in blood, level not specified
CPT/HCPCS: 36415; 70450; 80053; 80320; 82550; 85025; 96365; 96375; 99284; J1953; J2060; J3475; J3490; J7030

== ENCOUNTER 2021-12-01 08:24 | Emergency (ER) | payer MEDICARE, MEDICAID ==
[~2021-12-01] VITALS: Ht 177.8 cm; Wt 86.0 kg
[~2021-12-01 08:24] MED LIST changes: +KEP500T PO
[2021-12-01 08:39] VITALS: BP 135/85
== END 2021-12-01 09:42 | disposition left against medical advice (07) ==
LOC: ER 08:25
DX: R10.9 Unspecified abdominal pain (principal); Z53.21 Procedure and treatment not carried out due to patient leaving prior to being seen by health care provider

== ENCOUNTER 2022-01-30 09:12 | Day surgery (SDC) | payer MEDICARE, MEDICAID ==
[2022-01-29 11:15] LABS: BASOPHILS # (AUTO) 0.1 X10'3 (0-0.2); BASOPHILS % (AUTO) 1.2 % (0-1); EOSINOPHILS # (AUTO) 0.2 X10'3 (0-0.9); EOSINOPHILS % (AUTO) 3.8 % (0-6); LYMPHOCYTES # (AUTO) 0.6 X10'3 (1.1-4.8); LYMPHOCYTES % (AUTO) 11.2 % (21-51); MEAN CORPUSCULAR HEMOGLOBIN 31.3 PG (27.0-31.0); MEAN CORPUSCULAR HGB CONC 33.9 g/dL (33.0-36.5); MEAN CORPUSCULAR VOLUME 92.4 FL (78-98); MEAN PLATELET VOLUME 7.1 FL (7.4-10.4); MONOCYTES # (AUTO) 0.5 X10'3 (0-0.9); MONOCYTES % (AUTO) 8.9 % (2-12); NEUTROPHILS # (AUTO) 4.3 X10'3 (1.8-7.7); NEUTROPHILS % (AUTO) 74.9 % (42-75); PRE OP HEMATOCRIT 42.5 % (42.0-52.0); PRE OP HEMOGLOBIN 14.4 g/dL (14.0-17.9); PRE OP PLATELET COUNT 189 X10'3 (140-440); RED CELL DISTRIBUTION WIDTH 13.5 % (11.5-14.5)
[2022-01-29 11:30] LABS: CHLORIDE 100 MMOL/L (99-107); PRE OP POTASSIUM 4.4 MMOL/L (3.4-5.1); PRE OP SODIUM 135 MMOL/L (135-145)
[2022-01-29 11:31] LABS: ALBUMIN 3.9 G/DL (3.4-5.0); ALBUMIN/GLOBULIN RATIO 1.1 (1.1-1.5); ALKALINE PHOSPHATASE 97 IU/L (46-116); BLOOD UREA NITROGEN 28 MG/DL (7-18); BUN/CREATININE RATIO 18.3 (5.4-32.0); CALCIUM 9.2 MG/DL (8.5-10.1); CREATININE 1.53 MG/DL (0.60-1.10); PRE OP ANION GAP 10 (8-16); PRE OP AST 80 U/L (10-37); TOTAL CARBON DIOXIDE 24.7 MMOL/L (24-32); TOTAL PROTEIN 7.3 G/DL (6.4-8.2); eGFR 46 ML/MIN
[2022-01-29 11:32] LABS: PRE OP GLUCOSE 204 MG/DL (70-104)
[2022-01-29 11:33] LABS: PRE OP ALT 138 U/L (30-65)
[2022-01-29 14:35] LABS: HEMOGLOBIN A1C 6.8 % (4.5-6.2)
[2022-01-30] VITALS (12 sets, daily range): BP systolic 168–186; BP diastolic 81–102
[~2022-01-30] VITALS: Ht 177.8 cm; Wt 87.4 kg
[~2022-01-30 09:12] MED LIST changes: -CARV25TA PO; +CARV25TA3 PO; +CLON0.3T PO; -DULO-31 PO; +DULO30CA52 PO; -IPRA3AMP9 NEB; -KEP500T PO; +METF-1203 PO; -METF-436 PO; -SPIR25TA5 PO; +ceFAZolin inj. 2,000 MG in dextrose 5%-water 100 ML IV ONE; -clonidine PO; +famotidine 20mg tablet PO ONE; +ringers solution, lacted 1,000 ML IV SCH
[2022-01-30] MEDS ORDERED: BUPIVAcaine 0.5% inj/PF 30 ML ONE (11:37)
[2022-01-30] MEDS ORDERED: LIDOcaine 1% 30ml preserv. free vial ONE (11:37)
[2022-01-30] MEDS ORDERED: BUPIVAcaine 0.5% inj/PF 30 ml vial IJ ONE (11:46)
[2022-01-30] MEDS ORDERED: sevoflurane 250ml liquid IH ONE (12:09)
[2022-01-30] MEDS ORDERED: midazolam 1 mg/ML 2ml injection ONE (12:14)
[2022-01-30] MEDS ORDERED: fentaNYL /PF 50mcg/ml 5ml ampule ONE (12:14)
[2022-01-30] MEDS ORDERED: LIDOcaine 2% (20mg/ml) 5ml vial ONE (12:33)
[2022-01-30] MEDS ORDERED: rocuronium 10mg/ml inj IV ONE (12:33)
[2022-01-30] MEDS ORDERED: ondansetron/PF 4mg/2ml inj ONE (12:33)
[2022-01-30] MEDS ORDERED: propofol inj 20 ML IV ONE (12:33)
[2022-01-30] MEDS ORDERED: dexamethasone sod phosphate 4mg/ml inj. ONE (12:34)
[2022-01-30] MEDS ORDERED: glycopyrrolate 0.2mg/ml inj ONE (13:30)
[2022-01-30] MEDS ORDERED: neostigmine methylsulfate 1 MG/ML 10ml vial ONE (13:30)
[2022-01-30] MEDS ORDERED: oxyCODONE/APAP 5-325mg tablet PO PRN (13:45)
--- NOTE | 2022-01-30 13:45 | NUR ---
Received from OR via [facility] IN STABLE CONDIDTION , accompanied by Anesthesiologist and MANGANESE HEATER report given by MANGANESE HEATER AND Anesthesiolgist. Addendum: 01/30/22 at 1502 by Madhuri Alvarado RN Amended: Links added.
[2022-01-30] MEDS ORDERED: proCHLORperazine 10 MG/2 ml inj IV PRN (13:50)
[2022-01-30] MEDS ORDERED: labetalol 20mg/4ml (5mg/ml) syringe IV PRN (13:50)
[2022-01-30] MEDS ORDERED: ondansetron/PF 4mg/2ml inj IV PRN (13:50)
[2022-01-30] MEDS ORDERED: albuterol 2.5 MG/3 ML nebule NEB ONE (13:50)
[2022-01-30] MEDS ORDERED: acetaminophen 1,000mg/100ml IV 100 ML IV PRN (13:50)
[2022-01-30] MEDS ORDERED: morphine 4 MG/ML inj SYRINge IV PRN (13:50)
[2022-01-30] MEDS ORDERED: morphine 2 MG/ML inj. syringe IV PRN (13:50)
[2022-01-30] MEDS ORDERED: meperidine/PF 25mg/ml syringe IV PRN (13:50)
[2022-01-30] MEDS ORDERED: hydrALAZINE 20mg/ml inj. IV PRN (13:50)
[2022-01-30] MEDS ORDERED: ringers solution, lacted 1,000 ML IV SCH (13:50)
[2022-01-30] MEDS ORDERED: HYDROmorphone/PF 0.2 MG/ML SYRINGE IV PRN ×2 (13:50)
--- NOTE | 2022-01-30 15:15 | NUR ---
PATIENT DISCHARGED FROM PACU IN STABLE CONDITION AFTER WRITTEN AND VERBAL DISCHARGE INSTRUCTIONS GIVEN. PATIENT GAVE VERBAL UNDERSTANDING OF INSTRUCTIONS GIVEN. PATIENT LEFT FACILITY VIA WHEELCHAIR WITH RN. Addendum: 01/30/22 at 1536 by Madhuri Alvarado RN Amended: Links added.
== END 2022-01-30 15:15 | disposition home or self-care (01) ==
LOC: PRE-OP 09:12
PROVIDERS: ATTEND Surgery
DX: K40.90 Unilateral inguinal hernia, without obstruction or gangrene, not specified as recurrent (principal); E11.9 Type 2 diabetes mellitus without complications; M19.90 Unspecified osteoarthritis, unspecified site; D64.9 Anemia, unspecified; J44.9 Chronic obstructive pulmonary disease, unspecified; I10 Essential (primary) hypertension; K21.9 Gastro-esophageal reflux disease without esophagitis; Z79.899 Other long term (current) drug therapy; Z90.49 Acquired absence of other specified parts of digestive tract; Z98.890 Other specified postprocedural states; Z88.8 Allergy status to other drugs, medicaments and biological substances; Z86.73 Personal history of transient ischemic attack (TIA), and cerebral infarction without residual deficits; Z85.038 Personal history of other malignant neoplasm of large intestine
CPT/HCPCS: 36415; 49650; 80053; 82948; 83036; 85025; 94640; 94760; C1781; J0690; J1100; J2250; J2405; J2704; J2710; J3010; J3490; J7030; J7060; J7120; S0020; Z7506; Z7508; Z7512; A4215; A4618

== ENCOUNTER 2023-02-19 05:32 | Day surgery (SDC) | payer MEDICARE, MEDICAID ==
[2023-02-12 14:15] LABS: BASOPHILS % (AUTO) 0.8 % (0-1); EOSINOPHILS # (AUTO) 0.3 X10'3 (0-0.9); EOSINOPHILS % (AUTO) 4.6 % (0-6); LYMPHOCYTES % (AUTO) 17.5 % (21-51); MEAN CORPUSCULAR HEMOGLOBIN 31.5 PG (27.0-31.0); MEAN CORPUSCULAR HGB CONC 33.4 g/dL (33.0-36.5); MEAN CORPUSCULAR VOLUME 94.3 FL (78-98); MEAN PLATELET VOLUME 7.1 FL (7.4-10.4); MONOCYTES # (AUTO) 0.5 X10'3 (0-0.9); NEUTROPHILS % (AUTO) 68.1 % (42-75); PRE OP HEMATOCRIT 40.9 % (42.0-52.0); PRE OP HEMOGLOBIN 13.7 g/dL (14.0-17.9); PRE OP PLATELET COUNT 164 X10'3 (140-440); PRE OP WHITE BLOOD COUNT 5.9 10'3 (4.8-10.8); RED BLOOD COUNT 4.34 X10'6 (4.70-6.10)
[2023-02-12 14:30] LABS: ALBUMIN 3.3 G/DL (3.4-5.0); BLOOD UREA NITROGEN 21 MG/DL (7-18); BUN/CREATININE RATIO 16.5 (10.0-20.0); CALCIUM 8.7 MG/DL (8.5-10.1); CHLORIDE 103 MMOL/L (99-107); CREATININE 1.27 MG/DL (0.60-1.10); PRE OP ANION GAP 8 (8-16); PRE OP BILIRUB, TOTAL 0.4 MG/DL (0.0-1.0); PRE OP POTASSIUM 4.1 MMOL/L (3.4-5.1); PRE OP SODIUM 138 MMOL/L (135-145); TOTAL CARBON DIOXIDE 26.9 MMOL/L (24-32); eGFR 57 ML/MIN
[2023-02-12 14:31] LABS: ALBUMIN/GLOBULIN RATIO 0.9 (1.1-1.5); ALKALINE PHOSPHATASE 81 IU/L (46-116); PRE OP ALT 19 U/L (30-65); PRE OP AST 17 U/L (10-37)
[2023-02-12 14:34] LABS: PRE OP GLUCOSE 237 MG/DL (70-104)
[~2023-02-19] VITALS: Ht 177.8 cm; Wt 81.6 kg
[2023-02-19] VITALS (10 sets, daily range): BP systolic 136–188; BP diastolic 73–96; PULSE 56–62; RESP 12–21; TEMP 97.6; O2SAT 96–100
[~2023-02-19 05:32] MED LIST changes: +DIVA500T9 PO; +DOCUMENT DATE & TIME OF BETA-BLOCKER PO ONE; +SPIR25TA5 PO; +albuterol 2.5 MG/3 ML nebule NEB ONE; -ceFAZolin inj. 2,000 MG in dextrose 5%-water 100 ML IV ONE; +cefazolin 2gm/D5W 100mL 100 ML IV ONE
[2023-02-19] MEDS ORDERED: BUPIVAcaine/PF 2.5mg/ml (0.25%) 10ml vial ONE ×2 (06:46→07:00)
[2023-02-19] MEDS ORDERED: LIDOcaine 1% 30ml preserv. free vial ONE (06:46)
[2023-02-19] MEDS ORDERED: BUPIVACAINE liposomal/PF 13.3 MG/ML vial IM ONE (07:00)
[2023-02-19] MEDS ORDERED: fentaNYL/PF 50MCG/1 ML 2ML syringe ONE (07:23)
[2023-02-19] MEDS ORDERED: midazolam 1 mg/ML 2ml injection ONE (07:23)
[2023-02-19] MEDS ORDERED: rocuronium 10mg/ml inj IV ONE (07:25)
[2023-02-19] MEDS ORDERED: propofol inj 20 ML IV ONE (07:25)
[2023-02-19] MEDS ORDERED: ringers solution, lacted 1,000 ML IV SCH (07:35)
[2023-02-19] MEDS ORDERED: ipratropium/albuterol 3ml nebule IH ONE (07:35)
[2023-02-19] MEDS ORDERED: morphine 4 MG/ML inj SYRINge IV PRN (07:35)
[2023-02-19] MEDS ORDERED: proCHLORperazine 10 MG/2 ml inj IV PRN (07:35)
[2023-02-19] MEDS ORDERED: ondansetron/PF 4mg/2ml inj IV PRN (07:35)
[2023-02-19] MEDS ORDERED: meperidine/PF 25mg/ml syringe IV PRN ×2 (07:35)
[2023-02-19] MEDS ORDERED: morphine 2 MG/ML inj. syringe IV PRN (07:35)
[2023-02-19] MEDS ORDERED: dexamethasone sod phosphate 4mg/ml inj. ONE (09:16)
[2023-02-19] MEDS ORDERED: ePHEDrine 50MG/ML INJ. ONE (09:16)
[2023-02-19] MEDS ORDERED: ondansetron/PF 4mg/2ml inj ONE (09:33)
[2023-02-19] MEDS ORDERED: sugammadex 200mg/2ml injection IV ONE (09:34)
[2023-02-19] MEDS: meperidine/PF 25mg/ml syringe IV PRN ×2 (10:09→10:25)
[2023-02-19] MEDS ORDERED: oxyCODONE/APAP 5-325mg tablet PO PRN (10:10)
== END 2023-02-19 10:56 | disposition home or self-care (01) ==
LOC: PAS 05:32
PROVIDERS: ATTEND Surgery
DX: K43.9 Ventral hernia without obstruction or gangrene (principal); J44.9 Chronic obstructive pulmonary disease, unspecified; I10 Essential (primary) hypertension; E11.9 Type 2 diabetes mellitus without complications; E78.5 Hyperlipidemia, unspecified; G89.29 Other chronic pain; K21.9 Gastro-esophageal reflux disease without esophagitis; N40.0 Benign prostatic hyperplasia without lower urinary tract symptoms; F17.210 Nicotine dependence, cigarettes, uncomplicated; F10.91 Alcohol use, unspecified, in remission; Z98.890 Other specified postprocedural states; Z90.49 Acquired absence of other specified parts of digestive tract; Z88.8 Allergy status to other drugs, medicaments and biological substances; Z79.899 Other long term (current) drug therapy; Z79.84 Long term (current) use of oral hypoglycemic drugs; Z86.73 Personal history of transient ischemic attack (TIA), and cerebral infarction without residual deficits; Z85.038 Personal history of other malignant neoplasm of large intestine
CPT/HCPCS: 36415; 49593; 71046; 80053; 82948; 85025; 93005; C1781; C9290; J0690; J1100; J2175; J2250; J2405; J2704; J3010; J3490; J7030; J7120; Z7506; Z7508; Z7512; A4215; A4618